=== PATIENT | female | born 1985 | race American Indian/Alaskan Native ===

== ENCOUNTER 2018-12-31 21:27 | Emergency (ER) | payer MEDICAID ==
[~2018-12-31] VITALS: Ht 160 cm; Wt 40.0 kg
[~2018-12-31 21:27] MED LIST: BISA-155 PO; HYDR-4383 PO; MECL-111 PO; MUPI15CR TOP; ONDA8TAB9 PO; PANT40TA39 PO; PERM60CR19 TP; PHEN-786 PO; PHEN-824 PO; POLY119P2 PO; ZOF4T PO
[2018-12-31 21:33] VITALS: BP 114/84
[2018-12-31] MEDS ORDERED: sulfamethoxazole/trimethoprim DS (800/160mg) tablet PO ONE (21:45)
[2018-12-31] MEDS ORDERED: SULF1TAB49 PO (21:55)
== END 2018-12-31 22:04 | disposition home or self-care (01) ==
LOC: ER 21:28
DX: L02.31 Cutaneous abscess of buttock (principal); F41.9 Anxiety disorder, unspecified; F31.9 Bipolar disorder, unspecified; F12.10 Cannabis abuse, uncomplicated; F11.10 Opioid abuse, uncomplicated; F15.10 Other stimulant abuse, uncomplicated; Z56.0 Unemployment, unspecified; Z79.899 Other long term (current) drug therapy
CPT/HCPCS: 99283

== ENCOUNTER 2019-11-17 11:15 | Emergency (ER) | payer MEDICAID, OTHER ==
[~2019-11-17] VITALS: Ht 160 cm; Wt 65.0 kg
[~2019-11-17 11:15] MED LIST changes: -MECL-111 PO; +MECL-159 PO; -PERM60CR19 TP
[2019-11-17 11:26] VITALS: BP 111/71
[2019-11-18] MEDS ORDERED: NALO4SPR NAS (13:29)
[2019-11-18] MEDS ORDERED: METR-159 PO (13:29)
== END 2019-11-17 12:27 | disposition home or self-care (01) ==
LOC: ER 11:15
DX: F11.10 Opioid abuse, uncomplicated (principal); F15.10 Other stimulant abuse, uncomplicated; F10.10 Alcohol abuse, uncomplicated; F41.9 Anxiety disorder, unspecified; F31.9 Bipolar disorder, unspecified; Z60.2 Problems related to living alone; Z56.0 Unemployment, unspecified; Z98.890 Other specified postprocedural states; Z79.899 Other long term (current) drug therapy; Y90.9 Presence of alcohol in blood, level not specified
CPT/HCPCS: 99281

== ENCOUNTER 2019-11-18 11:02 | Emergency (ER) | payer MEDICAID, OTHER ==
[~2019-11-18] VITALS: Ht 160 cm; Wt 65.2 kg
[2019-11-18 11:50] VITALS: BP 129/69
[2019-11-18] MEDS ORDERED: CefTRIAXone 1000mg IM Kit (w/lidocaine diluent) IM ONE (12:00)
[2019-11-18] MEDS ORDERED: azithromycin 250mg tablet PO ONE (12:00)
[2019-11-18 12:06] LABS: URINE HCG NEGATIVE (NEG)
[2019-11-18 12:13] LABS: CLARITY,URINE SLIGHTLY CLOUDY (Clear); COLOR,URINE YELLOW (Yellow); GLUCOSE, URINE NEGATIVE (Neg); KETONES,URINE 15 mg/dl (Neg); LEUKOCYTE ESTERASE ,URINE NEGATIVE (Neg); NITRITES, URINE NEGATIVE (Neg); OCCULT BLOOD,URINE LARGE (Neg); PROTEIN,URINE TRACE mg/dl (Neg); UROBILINOGEN,URINE 0.2 E.U/dL (0.2-1.0)
[2019-11-18 12:14] LABS: UA COLLECTION TYPE CLN CATCH MIDSTREAM
[2019-11-18 12:24] LABS: BACTERIA,URINE 3+ /HPF (Neg); MUCUS STRANDS FEW /LPF (Neg); RBC,URINE 0-2 /HPF (0-2); SQUAMOUS EPITHELIAL CELL,UR MANY /LPF (FEW); WBC,URINE 0-4 /HPF (0-4)
[2019-11-18] MEDS ORDERED: NALO4SPR NAS (13:29)
[2019-11-18] MEDS ORDERED: METR-159 PO (13:29)
== END 2019-11-18 13:54 | disposition home or self-care (01) ==
LOC: ER 11:10
DX: A59.09 Other urogenital trichomoniasis (principal); F12.90 Cannabis use, unspecified, uncomplicated; F15.90 Other stimulant use, unspecified, uncomplicated; F11.90 Opioid use, unspecified, uncomplicated; Z56.0 Unemployment, unspecified; Z98.890 Other specified postprocedural states; Z88.8 Allergy status to other drugs, medicaments and biological substances; Z79.899 Other long term (current) drug therapy; Z87.440 Personal history of urinary (tract) infections
CPT/HCPCS: 36415; 81001; 81025; 87210; 87491; 87591; 96372; 99283; J0696

== ENCOUNTER 2019-12-07 13:20 | Emergency (ER) | payer MEDICAID ==
[~2019-12-07] VITALS: Ht 160 cm; Wt 66.0 kg
[~2019-12-07 13:20] MED LIST changes: +NALO4SPR NAS
[2019-12-07 13:54] VITALS: BP 136/72
== END 2019-12-07 14:32 | disposition home or self-care (01) ==
LOC: ER 13:20
DX: F11.10 Opioid abuse, uncomplicated (principal); F41.9 Anxiety disorder, unspecified; F32.9 Major depressive disorder, single episode, unspecified; F12.90 Cannabis use, unspecified, uncomplicated; F15.90 Other stimulant use, unspecified, uncomplicated; Z86.19 Personal history of other infectious and parasitic diseases; Z98.890 Other specified postprocedural states; Z60.2 Problems related to living alone; Z56.0 Unemployment, unspecified; Z88.8 Allergy status to other drugs, medicaments and biological substances; Z79.899 Other long term (current) drug therapy
CPT/HCPCS: 99281

== ENCOUNTER 2019-12-22 10:14 | Emergency (ER) | payer MEDICAID ==
[~2019-12-22] VITALS: Ht 160 cm; Wt 65.0 kg
[2019-12-22 10:21] VITALS: BP 112/64
[2019-12-22] MEDS ORDERED: AMOX-101 PO (11:39)
== END 2019-12-22 11:47 | disposition home or self-care (01) ==
LOC: ER 10:14
DX: H66.91 Otitis media, unspecified, right ear (principal); F41.9 Anxiety disorder, unspecified; F31.9 Bipolar disorder, unspecified; F12.90 Cannabis use, unspecified, uncomplicated; F15.90 Other stimulant use, unspecified, uncomplicated; F11.90 Opioid use, unspecified, uncomplicated; Z98.890 Other specified postprocedural states; Z60.2 Problems related to living alone; Z56.0 Unemployment, unspecified; Z88.8 Allergy status to other drugs, medicaments and biological substances; Z79.899 Other long term (current) drug therapy
CPT/HCPCS: 99283